=== PATIENT | male | born 1965 | race Hispanic/Latino ===

== ENCOUNTER 2019-08-18 10:39 | Outpatient (CLI) | payer OTHER ==
[2019-08-18] MEDS ORDERED: EPINEPHrine 1 MG/ML AMP ONE (11:20)
[2019-08-18] MEDS ORDERED: Iopamidol 300 61% 50 ML VIAL FS ONE (11:20)
[2019-08-18] MEDS ORDERED: Gadobenate Dimeglumine 529 MG/1 ML (20ML VIAL) ONE (11:20)
[2019-08-18] MEDS ORDERED: Lidocaine 1% PF 10 ML AMP ONE (11:20)
--- NOTE | 2019-08-18 13:16 | RAD ---
Arthrogram right shoulder: 08/18/2019 HISTORY: 54-year-old male with recurrent right shoulder pain after rotator cuff repair surgery. TECHNIQUE: Signed informed consent obtained. Cutter Operator radiographic views obtained. Anterior skin prepped and draped in usual sterile fashion. 25-gauge needle used to apply buffered lidocaine superficially and deeply. 22-gauge spinal needle advanced from anterior approach. Distal tip placed into the intracapsu lar space. Total of 10 mL normal saline solution containing MultiHance, Isovue, lidocaine, and epinephrine, injected. Needle removed. No complications. FINDINGS: Cutter Operator views demonstrate moderate osteophytosis at the AC joint, tendon repair anchors deep within the humeral head, and no subluxation or dislocation. Postinjection images demonstrate good distribution of contrast within the glenohumeral joint space. There is abnormal presents of contrast material in the subacromial-subdeltoid bursa. IMPRESSION: 1. Status post rotator cuff repair. 2. Recurrent full-thickness tear of the rotator cuff. 3. See separate report of post arthrogram MRI.
--- NOTE | 2019-08-18 16:20 | MRI ---
MRI OF RIGHT SHOULDER WITH CONTRAST: HISTORY: Shoulder pain. COMPARISON: None. FINDINGS: BICEPS TENDON: Prior extraarticular biceps tenodesis involving the intertrabecular groove. LABRUM: There is free edge fraying and volume loss of the superior labrum from chronic tear and possible prio r debridement. ROTATOR CUFF: U-shaped full-thickness tear supraspinatus tendon from the footprint involving the mid 1.5 cm fibers with a few partially torn implanting anterior rotator cable fibers and a few posterior conjoined tend on fibers implanting. There is interstitial-type tearing of the infraspinatus tendon with undersurfa ce partial tearing. The supraspinatus tendon tear is from the footprint with a few wisps of granulat ion scar tissue attempting to bridge the tear. SOFT TISSUES: There is mild synovitis of the rotator interval with previous extension of contrast in the subacromia l subdeltoid bursa which does have communication with the acromioclavicular joint. MUSCLES: Minimal atrophy of the supraspinatus. The remainder of the musculature is normal. IMPRESSION: 1. Full-thickness tear through the supraspinatus tendon repair involving the mid 1.5 cm fibers at th e footprint with a 2.5 cm gap. There are a few anterior implanting rotator cable fibers making this a U-shaped tear. 2. Mild undersurface partial tearing and interstitial-type delamination of the infraspinatus tendon without full-thickness tear. 3. Prior biceps tenodesis. 4. Minimal atrophy of the supraspinatus muscle. 5. Communication of the glenohumeral joint with the subacromial subdeltoid bursa which does communic ate with the acromioclavicular joint. 6. Loss of volume with scar of the superior labrum. POS: [facility]
== END 2019-08-18 10:40 | disposition home or self-care (01) ==
LOC: RAD 10:39
PROVIDERS: ATTEND Family Medicine
DX: S46.991D Other injury of unspecified muscle, fascia and tendon at shoulder and upper arm level, right arm, subsequent encounter (principal); M75.121 Complete rotator cuff tear or rupture of right shoulder, not specified as traumatic; Z98.890 Other specified postprocedural states
CPT/HCPCS: 23350; A9577; J0171; J2001; Q9967

== ENCOUNTER 2020-06-22 12:35 | Outpatient (CLI) | payer OTHER | END 2020-06-22 12:36 | disposition home or self-care (01) | LOC: BICMRI 12:35 | PROVIDERS: ATTEND Orthopaedic Surgery | DX: M75.101 Unspecified rotator cuff tear or rupture of right shoulder, not specified as traumatic (principal); Z98.890 Other specified postprocedural states ==

== ENCOUNTER 2020-08-20 16:09 | Outpatient (CLI) | payer BC | END 2020-08-20 16:10 | disposition home or self-care (01) | LOC: BICRAD 16:09 | PROVIDERS: ATTEND Family Medicine | DX: M79.652 Pain in left thigh (principal) ==

== ENCOUNTER 2021-09-23 10:32 | Outpatient (CLI) | payer BC ==
[2021-09-23] MEDS ORDERED: Gadobenate Dimeglumine 529 MG/1 ML (20ML VIAL) ONE (12:21)
== END 2021-09-23 10:33 | disposition home or self-care (01) ==
LOC: MRI 10:32
PROVIDERS: ATTEND Otolaryngology Otolaryngic Allergy
DX: H91.91 Unspecified hearing loss, right ear (principal); J39.2 Other diseases of pharynx
CPT/HCPCS: 70553; A9577

== ENCOUNTER 2023-02-08 10:46 | Outpatient (CLI) | payer BC | END 2023-02-08 10:47 | disposition home or self-care (01) | LOC: BICCT 10:46 | PROVIDERS: ATTEND Internal Medicine Cardiovascular Disease | DX: I99.8 Other disorder of circulatory system (principal) | CPT/HCPCS: 70498; 82565 ==

== ENCOUNTER 2023-03-16 09:46 | Outpatient (CLI) | payer BC | END 2023-03-16 09:47 | disposition home or self-care (01) | LOC: ULT 09:46 | PROVIDERS: ATTEND Internal Medicine Cardiovascular Disease | DX: I99.8 Other disorder of circulatory system (principal); I77.1 Stricture of artery | CPT/HCPCS: 93923 ==

== ENCOUNTER 2023-04-03 09:42 | Outpatient (CLI) | payer BC ==
[~2023-04-03 09:42] MED LIST: Iopamidol 370 76% 100 ML VIAL ONE
== END 2023-04-03 09:43 | disposition home or self-care (01) ==
LOC: BICCT 09:42
PROVIDERS: ATTEND Thoracic Surgery (Cardiothoracic Vascular Surgery)
DX: I70.213 Atherosclerosis of native arteries of extremities with intermittent claudication, bilateral legs (principal); I77.1 Stricture of artery
CPT/HCPCS: 70498; 82565

== ENCOUNTER 2024-01-23 09:07 | Outpatient (CLI) | payer BC | END 2024-01-23 09:08 | disposition home or self-care (01) | LOC: ULT 09:07 | PROVIDERS: ATTEND Family Medicine | DX: N45.1 Epididymitis (principal); N50.89 Other specified disorders of the male genital organs | CPT/HCPCS: 76870; 93976 ==

== ENCOUNTER 2024-12-08 23:54 | Emergency (ER) | payer BC ==
[2024-12-09] MEDS ORDERED: Dexamethasone 10 MG/ML VIAL ONE (00:24)
[2024-12-09] MEDS ORDERED: Orphenadrine Citrate 60 MG/2 ML VIAL ONE (00:25)
[2024-12-09] MEDS ORDERED: Ketorolac Tromethamine 30 MG (1 mL) VIAL ONE (00:25)
[2024-12-09] MEDS ORDERED: HYDROcodone/Acetaminophen 10/325 mg Tablet ONE (00:25)
== END 2024-12-09 01:51 | disposition home or self-care (01) ==
LOC: ERS 23:54
DX: M54.50 Low back pain, unspecified (principal); X50.0XXA Overexertion from strenuous movement or load, initial encounter
CPT/HCPCS: 96372; 99283; J1100; J1885; J2360